=== PATIENT | male | born 1990 | race Caucasian/White ===

== ENCOUNTER 2024-08-21 09:01 | Emergency (ER) | payer SELFPAY ==
[2024-08-21] VITALS (7 sets, daily range): BP systolic 104–137; BP diastolic 60–94; PULSE 70–86; RESP 12–19; TEMP 36.7; O2SAT 94–99; BMI 29.2
--- NOTE | 2024-08-21 09:06 | ECG_ITS ---
APPROVED REPORT Exam: Resting ECG HR:83 bpm ECG Measurements Heart Rate [address] 158 P 47 QRSd 109 QRS 5 QT 347 T 37 QTc 387 Conclusion SINUS RHYTHM NONSPECIFIC ST & T-WAVE ABNORMALITY BORDERLINE ECG Electronically signed by : HOANG LOPEZ, 08/29/2024 07:16:37
--- NOTE | 2024-08-21 09:10 | PC.NURSE ---
DR MAHMOOD AT BEDSIDE
--- NOTE | 2024-08-21 09:12 | CT_ITS ---
FINAL REPORT TECHNIQUE: Axial imaging of the head was obtained without contrast. This study was performed with techniques to keep radiation doses as low as reasonably achievable, (ALARA). Individualized dose reduction techniques using automated exposure control or adjustment of mA and/or kV according to the patient''s size were employed. CLINICAL HISTORY: Syncope, head trauma x2 FINDINGS: The ventricles are normal in size. There is no evidence of hemorrhage. No masses are identified. No extra-axial fluid is seen. The sinuses are normal. There is no acute osseous abnormality. There is a left parietal scalp hematoma. Mucosal thickening is seen of multiple sinuses. IMPRESSION: No acute intracranial abnormality. Reviewed, Interpreted and Dictated by Ad Myers III, MD Transcribed by Candelaria Whitley Authenticated and [facility]
--- NOTE | 2024-08-21 09:12 | CT_ITS ---
FINAL REPORT TECHNIQUE: Axial images were obtained from skull base to the thoracic inlet by computed tomography. Coronal and sagittal reconstruction process performed. This study was performed with techniques to keep radiation doses as low as reasonably achievable (ALARA). Individualized dose reduction techniques using automated exposure control or adjustment of mA and/or kV according to the patient''s size were employed. CLINICAL HISTORY: Fall, intoxicated, head trauma FINDINGS: There is no acute fracture or subluxation. There are mild degenerative changes with small osteophytes. The facets are normally aligned. The soft tissues are unremarkable. Limited images of the lung apices are unremarkable. IMPRESSION: No acute fracture. Reviewed, Interpreted and Dictated by Ad Myers III, MD Transcribed by Candelaria Whitley Authenticated and [facility]
--- NOTE | 2024-08-21 09:14 | HMH.EDGENADL ---
Discharge Plan Disposition Patient Disposition: Home, Self-Care Condition: Good Referrals Follow up/Referrals: Provider,Referral, MD [Primary Care Provider] - See instructions Activity Restrictions/Add. Instructions Additional Instructions/Restrictions: Continue to hydrate well at home by drinking plenty of fluids. Avoid excessive alcohol use in the future. If you develop any new or worsening symptoms, or if you become concerned for your health for any reason, return to the emergency department for evaluation Clinical Impressions Clinical Impression: Alcohol intoxication, Fall from standing Stand Alone Forms Stand Alone Forms: Work/School Release Print Language Print Language: [place] Discharge ED Provider: Toñito Choi Adult HPI General Chief complaint: Head Injury Stated complaint: AO-08/20/24 Time Seen by Provider: 08/21/24 09:12 Mode of Arrival: Ambulatory Source of Information: Patient Limitations: No Limitations History of Present Illness HPI narrative: Nakul Figueroa is a 33-year-old male with no significant past medical history who presents to the emergency department after sustaining head trauma. Patient is here with a coworker who states that they went out drinking last night and probably drank too much and patient ended up falling and hitting his head on the curb and was limp for approximately 2 minutes afterwards. They went back to the hotel and he showered from 2 AM to 7 AM this morning. Patient is complaining of everything being too loud as well as a headache. He notes that he still feels intoxicated. In the waiting room, patient fell and hit his head on the edge of the counter. He is unsure if he lost consciousness at this time. Patient reports he has no chronic medical conditions and feels okay other than the headache and the ringing in his ears. He denies any chest pain, palpitations, abdominal pain. Denies any back pain. Patient is GCS 15 at this time. Related Data Allergies Allergy/AdvReac Type Severity Reaction Status Date / Time No Known Allergies Allergy Verified 08/21/24 09:27 [facility] Disclaimer: The information contained in this section may have been updated after the patient was seen, as this information can be updated by other users. Social History (Updated 08/21/24 @ 10:08 by Jennifer Perez RN) Smoking Status: Current every day smoker tobacco type: e-cigarettes second hand exposure: No alcohol intake: current current occupational status: employed Travel in the last 8 weeks: None ROS Obtained: Yes Systems reviewed as appropriate & no additional complaints except as documented Physical Exam General General appearance: alert, in no apparent distress and anxious Comment: Patient initially lying on his back on the ground but is alert and oriented and in no respiratory distress. Appears mildly intoxicated Head Head exam: atraumatic and normocephalic Eye Eye exam: Present normal appearance ENT ENT exam: Present normal external ear exam Neck Neck exam: Present full ROM Chest Chest inspection: Present symmetric chest wall rise Respiratory Respiratory exam: Present normal lung sounds bilaterally; Absent respiratory distress Cardiovascular Cardiovascular exam: Present regular rate and normal rhythm Abdominal Exam Abdominal exam: Present soft; Absent tenderness or guarding exam: Present deferred Extremities Exam Extremities exam: Present normal inspection Back Exam Back exam: Present normal inspection; Absent tenderness (No C/T/L-spine tenderness) Neurological Exam Neurological exam: Present alert and oriented X3 Psychiatric Psychiatric exam: Present normal affect Skin Skin exam: Present warm and dry Medical Decision Making Medical Records Screening: Per USPSTF and CDC recommendations, given the prevalence of disease in our region, it is our hospital?s policy to screen for HIV and viral Hepatitis for all patients aged 18 and over and those with ongoing risk factors. Gt Inquiry Pt receiving controlled substance: No Vital Signs: 08/21/24 09:02 08/21/24 09:30 08/21/24 10:01 Temperature 98.0 F Temperature Source Oral Pulse Rate 78 70 Pulse Rate [Right] 86 Respiratory Rate 19 19 12 Blood Pressure 137/93 H 121/85 Blood Pressure [Right Arm] 133/94 H Blood Pressure Mean [Right Arm] 107 Blood Pressure Source Blood Pressure Source [Right Arm] Automatic Cuff Blood Pressure Position 02 Sat by Pulse Oximetry 98 94 L 94 L Oxygen Delivery Method Room Air Room Air Room Air 08/21/24 10:30 08/21/24 11:00 08/21/24 11:30 Temperature Temperature Source Pulse Rate 72 72 71 Pulse Rate [Right] Respiratory Rate 12 13 16 Blood Pressure 128/76 119/74 104/73 L Blood Pressure [Right Arm] Blood Pressure Mean [Right Arm] Blood Pressure Source Blood Pressure Source [Right Arm] Blood Pressure Position 02 Sat by Pulse Oximetry 94 L 96 95 Oxygen Delivery Method Room Air Room Air Room Air 08/21/24 12:04 Temperature 98.0 F Temperature Source Oral Pulse Rate 71 Pulse Rate [Right] Respiratory Rate 18 Blood Pressure 112/60 Blood Pressure [Right Arm] Blood Pressure Mean [Right Arm] Blood Pressure Source Automatic Cuff Blood Pressure Source [Right Arm] Blood Pressure Position Sitting 02 Sat by Pulse Oximetry Oxygen Delivery Method Room Air Lab Data Lab Results 08/21/24 09:05: WBC 8.6, RBC 5.42, Hgb 16.6, Hct 48.4, MCV 89.3, MCH 30.6, MCHC 34.3, RDW 13.6, Plt Count 248, MPV 8.9, Neut % (Auto) 67.1, Lymph % (Auto) 24.7, [place] % (Auto) 5.5, Eos % (Auto) 1.6, Baso % (Auto) 1.1, Neut # (Auto) 5.8, Lymph # (Auto) 2.1, [place] # (Auto) 0.5, Eos # (Auto) 0.1, Baso # (Auto) 0.1, Sodium 144, Potassium 4.5, Chloride 109 H, Carbon Dioxide 27, Anion Gap 12.5, BUN 18, Creatinine 1.00, Estimated GFR 85, Est GFR ( Amer) 103, Glucose 92, Calcium 8.8, Total Bilirubin 0.8, AST 47, ALT 42, Alkaline Phosphatase 77, Troponin I < 0.01, Total Protein 7.9, Albumin 4.9, Globulin 3.0, Albumin/Globulin Ratio 1.6, TSH 0.65 08/21/24 09:05 08/21/24 09:05 Orders (Tests/Meds): ED MEDICATIONS Discontinued Medications Generic Name Dose Route Start Last Admin Trade Name Freq PRN Reason Stop Dose Admin Acetaminophen 1,000 mg 08/21/24 09:12 08/21/24 09:29 Acetaminophen 500mg Tab PO 08/21/24 09:13 1,000 mg ONCE ONE Administration ORDERS Category Date Time Status CT cervical spine wo con Stat Cat Scan 08/21/24 09:[address] head/brain wo con Stat Cat Scan 08/21/24 09:12 Completed CBC w/Auto Diff [Complete Blood Count Auto Diff] Stat Lab 08/21/24 09:05 Completed CMP [Comprehensive Metabolic Panel] Stat Lab 08/21/24 09:05 Completed HIV (1&2) Antibody Rapid Stat Lab 08/21/24 09:05 Received Hep C Ab with Reflex to RNA Stat Lab 08/21/24 09:05 Received TSH [Thyroid Stimulating Hormone] Stat Lab 08/21/24 09:05 Completed Troponin I Stat Lab 08/21/24 09:05 Completed Medical Decision Narrative: Nakul Figueroa is a 33y male with no significant past medical history who presents to the emergency department for complaints of alcohol intoxication resulting in a fall as well as a possible syncopal/fall episode in the lobby of the emergency department. On arrival, patient was checking into the emergency department when he collapsed and hit his head on the counter. He never lost consciousness and was alert and oriented at the time. He was able to be lifted with assistance to the stretcher. He is complaining of a headache as well as increase sensitivity to sound. He notes that he is still intoxicated. He denies any neck pain, back pain, chest pain, palpitations, shortness of breath, abdominal pain and no numbness or weakness. Patient's physical exam is grossly unremarkable as he does not have any focal neurological deficits, is GCS 15, no external signs of trauma on the head, no tenderness to palpation in the cervical, thoracic or lumbar spine. No abdominal tenderness. Cardiopulmonary exam is unremarkable. Social diagnosis includes: Alcohol intoxication, dehydration, intracranial hemorrhage, cervical spine fracture, electrolyte derangement, hypoglycemia, hypothyroidism, cardiac arrhythmia, ACS , among others. Patient's workup in the emergency department included CBC with differential, CMP, troponin, TSH, EKG, CT head without contrast, CT C-spine without contrast. Patient's workup evaluated by me personally showed no anemia, no leukocytosis, CMP unremarkable and nonactionable with no significant electrolyte derangements. Liver enzymes within normal limits. Initial troponin less than 0.01. TSH normal at 0.65 EKG interpreted by me personally. Normal sinus rhythm. No ST elevation or depression. QTc normal at 387. NJ interval normal at 158. Ventricular rate of [address] imaging of the patient's head and C-spine were interpreted by me personally. No acute intracranial hemorrhage or midline shift. No skull fractures. No cervical spine fracture or malalignment. See radiology report for final details. On reassessment, patient was sleeping comfortably. His workup today is unremarkable for any acute findings. Given this, is felt that his symptoms were likely related to alcohol intoxication that he is appropriate for discharge at this time as he has friends with him. Return precautions were given. All questions were answered. He was then discharged from the emergency department in stable condition Critical Care Critical Care Time Critical Care Time: No
[2024-08-21 09:22] LABS: Basophils # 0.1 K/mm3 (0-0.2); Basophils % 1.1 % (0.1-2.0); Chloride 109 mmol/L (98-107); Eosinophils # 0.1 K/mm3 (0.0-0.4); Eosinophils % 1.6 % (0.1-12.0); Hematocrit 48.4 % (42.0-52.0); Hemoglobin 16.6 g/dL (14.1-18.0); Lymphocytes # 2.1 K/mm3 (0.7-4.5); Lymphocytes % 24.7 % (10-50); Mean Corpuscular HGB Conc 34.3 g/dL (31.8-35.4); Mean Corpuscular Hemoglobin 30.6 pg (27.0-31.2); Mean Corpuscular Volume 89.3 fl (80-94); Mean Platelet Volume 8.9 fl (7.4-10.4); Monocytes # 0.5 K/mm3 (0.1-1.0); Monocytes % 5.5 % (1.7-9.3); Neutrophils # 5.8 K/mm3 (1.8-7.8); Neutrophils % 67.1 % (37.0-80.0); Platelet Count 248 K/mm3 (142-424); Red Blood Count 5.42 M/mm3 (4.60-6.20); Red Cell Distribution Width 13.6 % (11.5-17.5); White Blood Count 8.6 K/mm3 (4.8-10.8)
[2024-08-21 09:23] LABS: Albumin Level 4.9 g/dl (3.5-5.0); Potassium 4.5 mmoL/L (3.5-5.1); Sodium 144 mmol/L (136-145)
[2024-08-21 09:25] LABS: Blood Urea Nitrogen 18 mg/dl (9-20); Estimated Glomerular Filt Rate 85 ml/min (>60); GFR (African American) 103 ML/MIN (>60)
[2024-08-21 09:26] LABS: Alanine Aminotransferase 42 U/L (12-78); Albumin/Globulin Ratio 1.6 (1.1-1.8); Alkaline Phosphatase 77 U/L (38-126); Anion Gap 12.5 mEq/L (5-15); Aspartate Amino Transferase 47 U/L (17-59); Bilirubin,Total 0.8 mg/dl (0.2-1.3); Calcium 8.8 mg/dl (8.4-10.2); Carbon Dioxide 27 mmol/L (22.0-30.0); Glucose 92 mg/dl (74-100); Total Protein,Serum 7.9 g/dl (6.3-8.2)
[2024-08-21] MEDS: ACETAMINOPHEN 500MG TAB 1000 MG PO (09:29)
--- NOTE | 2024-08-21 09:39 | PC.NURSE ---
Patient in radiology
--- NOTE | 2024-08-21 09:44 | PC.NURSE ---
Patient back from radiology
--- NOTE | 2024-08-21 09:44 | PC.NURSE ---
PT RETURNED FROM CT
[2024-08-21 09:51] LABS: Troponin I < 0.01 ng/ml (0.00-0.034)
[2024-08-21 09:57] LABS: Thyroid Stimulating Hormone 0.65 uIU/mL (0.465-4.68)
--- NOTE | 2024-08-21 11:57 | PC.NURSE ---
ROUNDED ON PT, SLEEPING SOUNDLY. AWAKENS EASILY. REPORTS FEELING BETTER. NO NEEDS AT THIS TIME
--- NOTE | 2024-08-21 12:00 | PC.NURSE ---
DR MAHMOOD AT BEDSIDE TO REEVALUATE PT AND DISCUSS POC
[2024-08-21 16:47] LABS: HIV Combo NEGATIVE (Negative)
[2024-08-22 06:13] LABS: HCV Ab Non Reactive (Non Reactive)
== END 2024-08-21 12:10 | disposition home or self-care (01) ==
PROVIDERS: Emergency Provider Student in an Organized Health Care Education/Training Program
DX: F10.929 Alcohol use, unspecified with intoxication, unspecified (principal); R51.9 Headache, unspecified; R44.8 Other symptoms and signs involving general sensations and perceptions; H93.13 Tinnitus, bilateral; W01.198A Fall on same level from slipping, tripping and stumbling with subsequent striking against other object, initial encounter; Y93.89 Activity, other specified; Y92.89 Other specified places as the place of occurrence of the external cause
CPT/HCPCS: 70450; 72125; 80053; 84443; 84484; 85025; 86803; 87389; 93005; 99284